=== PATIENT | male | born 1990 | race Two or more races ===

== ENCOUNTER 2018-11-22 00:03 | Emergency (ER) | payer SELFPAY ==
[2018-11-22] MEDS ORDERED: LEVETIRACETAM 500 MG/NACL-ISO 500 MG/100 ML RTUPB IV ONE (00:26)
[2018-11-22 00:44] LABS: ABSOLUTE EOSINOPHILS # (AUTO) 0.2 10^3/uL (0.0-0.6); ABSOLUTE LYMPHOCYTES (AUTO) 2.6 10^3/uL (0.5-4.7); ABSOLUTE MONOCYTES (AUTO) 0.4 10^3/uL (0.1-1.4); ABSOLUTE NEUT (AUTO) 3.1 10^3/uL (1.7-8.2); BASOPHILS % (AUTO) 0.5 % (0-2); EOSINOPHILS % (AUTO) 2.5 % (0-6); HEMATOCRIT 43.9 % (37.9-51.0); HEMOGLOBIN 14.6 g/dL (13.5-17.0); LYMPHOCYTES % (AUTO) 40.7 % (13-45); MEAN CORPUSCULAR HEMOGLOBIN 29.9 pg (27.0-33.4); MEAN CORPUSCULAR HGB CONC 33.3 g/dL (32.0-36.0); MEAN CORPUSCULAR VOLUME 90 fl (80-97); MONOCYTES % (AUTO) 6.1 % (3-13); PLATELET COUNT 227 10^3/uL (150-450); RED BLOOD COUNT 4.88 10^6/uL (4.35-5.55); SEGMENTED NEUTROPHILS % (AUTO) 50.2 % (42-78); TOTAL CELLS COUNTED % (AUTO) 100 %; WHITE BLOOD COUNT 6.3 10^3/uL (4.0-10.5)
[2018-11-22 01:04] LABS: ALANINE AMINOTRANSFERASE 32 U/L (21-72); ALCOHOL 21 mg/dL (NONE DETECTED); ALKALINE PHOSPHATASE 67 U/L (38-126); ANION GAP 16 (5-19); ASPARTATE AMINO TRANSFERASE 38 U/L (17-59); BILIRUBIN,DIRECT 0.3 mg/dL (0.0-0.4); BILIRUBIN,TOTAL 0.3 mg/dL (0.2-1.3); BLOOD UREA NITROGEN 14 mg/dL (7-20); CALCIUM 8.8 mg/dL (8.4-10.2); CARBON DIOXIDE 20 mmol/L (22-30); CHLORIDE 106 mmol/L (98-107); GLUCOSE 94 mg/dL (75-110); POTASSIUM 3.9 mmol/L (3.6-5.0); SODIUM 141.9 mmol/L (137-145); TOTAL PROTEIN 6.6 g/dL (6.3-8.2)
[2018-11-22] MEDS ORDERED: RINGERS SOLUTION,LACTATED 1,000 ML IV ONE (01:49)
--- NOTE | 2018-11-22 01:55 | RADIOLOGY REPORT (SQ) ---
EXAM DESCRIPTION: CT HEAD WITHOUT IV CONTRAST COMPLETED DATE/TME: 11/22/2018 00:26 CLINICAL HISTORY: 28 years, Male, sz/fall/swelling right eye COMPARISON: None. TECHNIQUE: 192 Images stored on PACS. All CT scanners at this facility use dose modulation, iterative reconstruction, and/or weight based dosing when appropriate to reduce radiation dose to as low as reasonably achievable (ALARA). [facility]: Dose Right [facility]: CareDose [facility]: Dose Right [facility]: Teradose 4D [facility]: Yobble LIMITATIONS: None. FINDINGS: Lobes are intact. Polyps of the maxillary sinuses. No displaced or depressed skull fracture. No intra or extra-axial hemorrhage. CT is limited for evaluation of acute infarct. There is no CT evidence for large or territorial acute infarct. There is no mass. There is no midline shift IMPRESSION: Negative for acute intracranial abnormality TECHNICAL DOCUMENTATION: Quality ID # 436: Final reports with documentation of one or more dose reduction techniques (e.g., Automated exposure control, adjustment of the mA and/or kV according to patient size, use of iterative reconstruction technique) copyright 2011 [employer]- All Rights Reserved
--- NOTE | 2018-11-22 01:57 | RADIOLOGY REPORT (SQ) ---
CLINICAL HISTORY: sz/fall/swelling right eye COMPARISON: None. TECHNIQUE: CT CERVICAL SPINE WITHOUT IV CONTRAST on 11/22/2018 12:26 AM CDT This exam was performed according to our departmental dose-optimization program, which includes automated exposure control, adjustment of the mA and/or kV according to patient size and/or use of iterative reconstruction technique. FINDINGS: There is no acute fracture. Alignment is anatomic. Disc spaces are maintained. Vertebral body heights are preserved. Soft tissues are unremarkable. IMPRESSION: No acute fracture or subluxation.
--- NOTE | 2018-11-22 02:01 | RADIOLOGY REPORT (SQ) ---
EXAM DESCRIPTION: [facility]: CT MAXILLOFACIAL WITHOUT IV CONTRAST CLINICAL HISTORY: 28 years Male; sz/fall/swelling right eye TECHNIQUE: High resolution axial CT of the face without contrast, with sagittal and coronal reformatted images. All CT scans at this facility use dose modulation, iterative reconstruction, and/or weight based dosing when appropriate to reduce radiation dose to as low as reasonably achievable. COMPARISON: None. FINDINGS: Facial bones are intact. Mandible is intact. There is chronic mucosal thickening with chronic mucous retention cysts in the maxillary sinuses. No sinus air-fluid levels. Mastoids are clear. Anni cell slightly narrows the left maxillary ostium. There is also mild mucosal thickening at the right maxillary ostium. No retro-orbital hematoma. IMPRESSION: 1. No acute facial fractures. No retro-orbital hematoma. 2. Chronic maxillary sinusitis.
[2018-11-22 03:31] LABS: APPEARANCE,URINE CLEAR; BILIRUBIN,URINE NEGATIVE (NEGATIVE); COLOR,URINE YELLOW; GLUCOSE, URINE NEGATIVE (NEGATIVE); KETONES,URINE TRACE mg/dL (NEGATIVE); LEUKOCYTE ESTERASE,URINE NEGATIVE (NEGATIVE); NITRITE,URINE NEGATIVE (NEGATIVE); PROTEIN,URINE NEGATIVE (NEGATIVE); UROBILINOGEN,URINE NEGATIVE mg/dL (<2.0)
[2018-11-22 04:13] LABS: URINE AMPHETAMINES SCREEN NEGATIVE; URINE BARBITURATES SCREEN NEGATIVE; URINE BENZODIAZEPINES SCREEN UNCONFIRMED POSITIVE; URINE COCAINE SCREEN NEGATIVE; URINE MARIJUANA (THC) SCREEN UNCONFIRMED POSITIVE; URINE METHADONE SCREEN NEGATIVE; URINE PHENCYCLIDINE SCREEN NEGATIVE
--- NOTE | 2018-11-22 04:37 | ER Document Report ---
ED Seizure - General Chief Complaint: Probable Seizure Stated Complaint: SEIZURES Time Seen by Provider: 11/22/18 00:17 Notes: Patient is a 28-year-old male presents to the emergency department via EMS for possible seizure. According to EMS patient was found at a hotel with another individual. Was found on the floor actively seizing. They administered the patient a total of 5 mg of Versed to stop seizures and then present to the emergency room. Patient has some minor erythema ecchymosis over the right eye, unsure of if patient hit his head during fall. EMS had no further information from witnesses on scene. In reviewing past patient charts I saw this patient a week ago for refill of his Keppra. He takes Keppra 1000 mg twice daily. Patient states he was new to the area and did not have insurance. I had refilled the patient's Keppra for 2 weeks supply giving him information for [facility] and [facility] for follow-up. - Related Data Allergies/Adverse Reactions: No Known Allergies Allergy (Unverified 11/15/18 23:08) Past Medical History - General Information source: Emergency Med Personnel - Social History Smoking Status: Unknown if Ever Smoked Family History: Reviewed & Not Pertinent Patient has suicidal ideation: No Patient has homicidal ideation: No Neurological Medical History: Reports: Hx Seizures Renal/ Medical History: Denies: Hx Peritoneal Dialysis Review of Systems - Review of Systems Constitutional: See HPI EENT: See HPI Cardiovascular: See HPI Respiratory: See HPI Gastrointestinal: See HPI Genitourinary: See HPI Male Genitourinary: See HPI Musculoskeletal: See HPI Skin: See HPI Hematologic/Lymphatic: See HPI Neurological/Psychological: See HPI Physical Exam - Vital signs Vitals: Temp 98.1 F 11/22/18 00:03 - Notes Notes: GENERAL: Alert to verbal stimuli. No acute distress. He is able to say his name and date of but is unsure of current events. HEAD: Normocephalic, slight ecchymosis noted lateral right eyebrow EYES: Pupils equal, round, and reactive to light. Extraocular movements intact. ENT: Oral mucosa moist, tongue midline. nares patent, no nasal septal hematoma, TM's intact, No hemotympanum noted bilaterally NECK: Full range of motion. Supple. Trachea midline. LUNGS: Clear to auscultation bilaterally, no wheezes, rales, or rhonchi. No respiratory distress. HEART: Tachycardic rate and rhythm. No murmur ABDOMEN: Soft, non-tender. Non-distended. Bowel sounds present in all 4 quadrants. EXTREMITIES: Moves all 4 extremities spontaneously. No edema, normal radial and dorsalis pedis pulses bilaterally. No cyanosis. BACK: no cervical, thoracic, lumbar midline tenderness. No saddle anesthesia, normal distal neurovascular exam. SKIN: Warm, dry, normal turgor. Course - Re-evaluation Re-evalutation: 11/22/18 04:39 Upon initial examination patient answered some questions but did appear sedated due to Versed. CT imaging of patient's head, neck were obtained. CT imaging negative. Upon reassessment of the patient at this time patient is conscious alert and oriented x4. States he remembers sleeping in a hotel room. States he feels as though he had a seizure, woke his roommate up and asked his roommate to call 911. States he does not remember anything after that. I then asked the patient if he has had time to follow-up with [facility] or [facility]. He states he has not been able to follow-up with anybody. States he has been taking the Keppra as I prescribed a week ago. Patient states he still has Keppra left. Patient is very agitated and aggressive with staff. Intermittently saying that I am lying to him that I did not refill his Keppra. I have reviewed past patient charts and I did not fact give the patient a prescription for Keppra. Patient starts getting up off the bed and asking to leave at this time. Discussed with him the need to follow-up with [facility] or [facility] for continued care of his seizure disorder. Also discussed return precautions. Patient stable for discharge. Laboratory 11/22/18 11/22/18 11/22/18 00:15 00:15 03:00 WBC 6.3 RBC 4.88 Hgb 14.6 Hct 43.9 MCV 90 MCH 29.9 MCHC 33.3 RDW 13.0 Plt Count 227 Seg Neutrophils % 50.2 Lymphocytes % 40.7 Monocytes % 6.1 Eosinophils % 2.5 Basophils % 0.5 Absolute Neutrophils 3.1 Absolute Lymphocytes 2.6 Absolute Monocytes 0.4 Absolute Eosinophils 0.2 Absolute Basophils 0.0 Sodium 141.9 Potassium 3.9 Chloride 106 Carbon Dioxide 20 L Anion Gap 16 BUN 14 Creatinine 0.89 Est GFR ( Amer) > 60 Est GFR (Non-Af Amer) > 60 Glucose 94 Calcium 8.8 Magnesium 1.9 Total Bilirubin 0.3 Direct Bilirubin 0.3 Neonat Total Bilirubin Not Reportable Neonat Direct Bilirubin Not Reportable Neonat Indirect Bili Not Reportable AST 38 ALT 32 Alkaline Phosphatase 67 Total Protein 6.6 Albumin 4.0 Urine Color YELLOW Urine Appearance CLEAR Urine pH 5.0 Ur Specific [place] 1.020 Urine Protein NEGATIVE Urine Glucose (UA) NEGATIVE Urine Ketones TRACE H Urine Blood NEGATIVE Urine Nitrite NEGATIVE Urine Bilirubin NEGATIVE Urine Urobilinogen NEGATIVE Ur Leukocyte Esterase NEGATIVE Urine WBC (Auto) 1 U Hyaline Cast (Auto) 1 Urine Bacteria (Auto) TRACE Urine Mucus (Auto) RARE Urine Ascorbic Acid 20 H Urine Opiates Screen Urine Methadone Screen Ur Barbiturates Screen Ur Phencyclidine Scrn Ur Amphetamines Screen U Benzodiazepines Scrn Urine Cocaine Screen U Marijuana (THC) Screen Serum Alcohol 21 11/22/18 03:00 WBC RBC Hgb Hct MCV MCH MCHC RDW Plt Count Seg Neutrophils % Lymphocytes % Monocytes % Eosinophils % Basophils % Absolute Neutrophils Absolute Lymphocytes Absolute Monocytes Absolute Eosinophils Absolute Basophils Sodium Potassium Chloride Carbon Dioxide Anion Gap BUN Creatinine Est GFR ( Amer) Est GFR (Non-Af Amer) Glucose Calcium Magnesium Total Bilirubin Direct Bilirubin Neonat Total Bilirubin Neonat Direct Bilirubin Neonat Indirect Bili AST ALT Alkaline Phosphatase Total Protein Albumin Urine Color Urine Appearance Urine pH Ur Specific [place] Urine Protein Urine Glucose (UA) Urine Ketones Urine Blood Urine Nitrite Urine Bilirubin Urine Urobilinogen Ur Leukocyte Esterase Urine WBC (Auto) U Hyaline Cast (Auto) Urine Bacteria (Auto) Urine Mucus (Auto) Urine Ascorbic Acid Urine Opiates Screen NEGATIVE Urine Methadone Screen NEGATIVE Ur Barbiturates Screen NEGATIVE Ur Phencyclidine Scrn NEGATIVE Ur Amphetamines Screen NEGATIVE U Benzodiazepines Scrn UNCONFIRMED POSITIVE Urine Cocaine Screen NEGATIVE U Marijuana (THC) Screen UNCONFIRMED POSITIVE Serum Alcohol Cervical Spine CT 11/22/18 00:26 IMPRESSION: No acute fracture or subluxation. Facial Bones CT 11/22/18 00:26 IMPRESSION: 1. No acute facial fractures. No retro-orbital hematoma. 2. Chronic maxillary sinusitis. Head CT 11/22/18 00:26 IMPRESSION: Negative for acute intracranial abnormality TECHNICAL DOCUMENTATION: Quality ID # 436: Final reports with documentation of one or more dose reduction techniques (e.g., Automated exposure control, adjustment of the mA and/or kV according to patient size, use of iterative reconstruction technique) copyright 2011 [employer]- All Rights Reserved - Vital Signs Vital signs: Temp Pulse Resp BP Pulse Ox 98.1 F 20 111/76 99 11/22/18 00:03 11/22/18 01:01 11/22/18 01:01 11/22/18 01:01 - Laboratory Result Diagrams: 11/22/18 00:15 11/22/18 00:15 Laboratory results interpreted by me: 11/22/18 11/22/18 00:15 03:00 Carbon Dioxide 20 L Urine Ketones TRACE H Urine Ascorbic Acid 20 H Discharge - Discharge Clinical Impression: Seizure Condition: Stable Disposition: HOME, SELF-CARE Instructions: Seizure, Known Epileptic (OM) Additional Instructions: As we discussed you have been seen and treated in the emergency department for a seizure. It is very important that you follow-up with [facility] or [facility] for continued care of your seizure history. Please make sure to take medications as prescribed and return to the emergency room for any other concerning symptoms. Prescriptions: Levetiracetam [Keppra 500 mg Tablet] 500 mg PO BID 14 Days tablet Referrals: [facility] [Provider Group] - Follow up as needed [facility] [Provider Group] - Follow up as needed
[2018-11-22] MEDS ORDERED: LEVETIRACETAM 500 MG TABLET PO ONE (04:38)
[2018-11-22 04:59] VITALS: BP 135/79
== END 2018-11-22 05:01 | disposition home or self-care (01) ==
LOC: ER 00:03
DX: R56.9 Unspecified convulsions (principal); R00.0 Tachycardia, unspecified; Z79.899 Other long term (current) drug therapy
CPT/HCPCS: 99284; 96361; 96365; 36415; 80307 ×2; 83735; 85025; 80053; 81001; 70450; 70486; 72125; J7120; J1953